=== PATIENT | female | born 1980 | race Caucasian/White ===

== ENCOUNTER 2024-10-16 01:37 | Day surgery (SDC) | payer OTHER, SELFPAY ==
[2024-09-25 09:09] VITALS: BMI 25.0
[2024-10-16 07:54] VITALS: BP 115/66; PULSE 76; RESP 18; TEMP 36.3; O2SAT 100; BMI 26.3
[2024-10-16] MEDS: LACTATED RINGERS 1,000 ML 150 ML IV CONT (07:58)
--- NOTE | 2024-10-16 08:46 | PM.HPGS ---
History of Present Illness History of Present Illness Consent: Risks, benefits, and alternatives have been discussed and questions answered. Patient agrees to proceed with procedure. Chief complaint: Fam. hx. colon CA Narrative: Kandi Godfrey is a 44 year old female with last colonoscopy 6 years ago, father had intestinal cancer Review of Systems Review of Systems: All systems reviewed & are unremarkable except as noted in HPI and below PMFSH Past Medical History Medical History (Updated 10/16/24 @ 08:47 by Jorge Reece MD) Colon cancer screening Encounter for IUD insertion 01/08/17 Mirena insertion Encounter for screening examination for sexually transmitted disease Remove/insert IUD Screening mammogram, encounter for Surgical History Surgical History (Updated 04/23/22 @ 14:22 by GIDEON López) History of gynecological procedure (04/23/22) mirena iud removal and reinsertion of new device History of rhinoplasty 09/11/07 Social History Social History Smoking status: Never smoker Tobacco type: cigarettes Alcohol intake: current Drinks per week: 1 Alcohol use details: 2-3 per month Substance use: never Substance use type: does not use Living arrangements: with family Additional living arrangements comments: spouse Occupation/Education: occupation Additional occupation/education comments: [employer] [place] - 2 Gender identity (if verbalized by the patient): Female Sexual Orientation (if Verbalized by the Patient): Straight or Heterosexual Spiritual care concerns: No Meds Home Medications and Allergies Home Medications Medication Instructions Recorded Confirmed Type levonorgestrel 21 mcg/24 hr (up to 1 device intrauterine ONCE 01/29/22 10/16/24 History 8 years) 52 mg intrauterine device (Mirena) atomoxetine 40 mg capsule 40 mg PO DAILY 09/25/24 10/16/24 History Allergies Allergy/AdvReac Type Severity Reaction Status Date / Time No Known Allergies Verified 10/16/24 07:52 Vital Signs Vital Signs - 24 hr 10/16/24 07:54 Temperature 97.4 F L Pulse Rate 76 Respiratory Rate 18 Blood Pressure 115/66 Pulse Oximetry 100 Oxygen Delivery Room Air Exam Const: General: comfortable and no acute distress HENMT: Face/Nose/Sinus: Normal nares present Eyes: General: appearance normal, both eyes and all related structures Neck: Neck: no JVD Resp: Auscultation: clear to auscultation bilaterally Cardio: Rate: regular rate Rhythm: regular rhythm GI: Inspection: non-distended GI Palp: Yes Soft to palpation Skin: General skin exam: normal color Neuro: General: gait normal Speech: normal speech Extrem: General: normal to inspection Psych: Mental Status: mental status grossly normal Assessment and Plan Assessment and plan (1) Colon cancer screening: Code(s): Z12.11 - Encounter for screening for malignant neoplasm of colon Status: Acute Assessment and Plan: colonoscopy
--- NOTE | 2024-10-16 08:46 | WPDANESEPPF ---
Anes - Initial Pre Proc Eval Procedure: Operation Date: 10/16/24 09:00 Proposed Procedures p Colonoscopy - Jorge Reece MD Date/Time: 10/16/24 08:46 Surgeon: Jorge Reece MD Pre Op Diagnosis: Fam. hx. colon CA Patient Data Age: 44 Gender: F Height: 1.68 m Weight: 74 kg Last Vital Signs Temp 97.4 F L 10/16/24 07:54 Pulse 76 10/16/24 07:54 Resp 18 10/16/24 07:54 BP 115/66 10/16/24 07:54 Pulse Ox 100 10/16/24 07:54 O2 Del Method Room Air 10/16/24 07:54 Allergies Allergy/AdvReac Type Severity Reaction Status Date / Time No Known Allergies Verified 10/16/24 07:52 Home Medications Medication Instructions Recorded Confirmed Type levonorgestrel 21 mcg/24 hr (up to 1 device intrauterine ONCE 01/29/22 10/16/24 History 8 years) 52 mg intrauterine device (Mirena) atomoxetine 40 mg capsule 40 mg PO DAILY 09/25/24 10/16/24 History Patient hx anesthesia problems: none Family hx anesthesia problems: none Results Review: All pre-operative results and documents have been reviewed as part of the pre-operative evaluation. [facility] Past Medical History Medical History Encounter for IUD insertion 01/08/17 Mirena insertion Encounter for screening examination for sexually transmitted disease Remove/insert IUD Screening mammogram, encounter for Surgical History Surgical History History of gynecological procedure (04/23/22) mirena iud removal and reinsertion of new device History of rhinoplasty 09/11/07 Social History Social History Smoking status: Never smoker Tobacco type: cigarettes Alcohol intake: current Drinks per week: 1 Alcohol use details: 2-3 per month Substance use: never Substance use type: does not use Living arrangements: with family Additional living arrangements comments: spouse Occupation/Education: occupation Additional occupation/education comments: [employer] Gender identity (if verbalized by the patient): Female Sexual Orientation (if Verbalized by the Patient): Straight or Heterosexual Spiritual care concerns: No Anes - Eval Final PreProcedure Day of Procedure 10/16/24 08:46 Patient weight: normal Heart: regular rate and rhythm Lungs: clear to auscultation Airway: Mallampati scale class 1 Neurological: alert and oriented Last oral intake: >/= 8 hours ASA classification: I Emergent: no Anesthetic plan: proceed Anesthesia type and monitoring: general GIVS and standard monitoring Results Review: All pre-operative results and documents have been reviewed as part of the pre-operative evaluation. Informed Consent: The patient's anesthetic plan and its attendant risks and benefits were discussed with the patient/family/POA. Questions were solicited and answers provided to the satisfaction of the patient/family/POA.
[2024-10-16 09:06] VITALS: BP 101/67; PULSE 87; RESP 20; O2SAT 100
[2024-10-16 09:16] VITALS: BP 102/66; PULSE 71; RESP 16; O2SAT 100
[2024-10-16 09:26] VITALS: BP 100/63; PULSE 70; RESP 14; O2SAT 100
== END 2024-10-16 09:46 | disposition home or self-care (01) ==
PROVIDERS: PCP Family Medicine; Visit Provider Internal Medicine Gastroenterology
PROC: 0DJD8ZZ Inspection of Lower Intestinal Tract, Via Natural or Artificial Opening Endoscopic (ICD-10-PCS; CPT 45378; principal; 2024-10-16 09:00)
DX: Z12.11 Encounter for screening for malignant neoplasm of colon (principal); K64.8 Other hemorrhoids; Z98.890 Other specified postprocedural states; Z80.0 Family history of malignant neoplasm of digestive organs
CPT/HCPCS: 45378; J2003; J2704; J7120